=== PATIENT | male | born 1940 | race Caucasian/White ===

== ENCOUNTER → 2024-03-09 08:01 | Outpatient (REF) | payer OTHER, SELFPAY | LOC: DHCBC/DCA 08:01 | PROVIDERS: ATTENDING PHYSICIAN Internal Medicine Cardiovascular Disease; FAMILY PHYSICIAN Family Medicine | DX: I25.799 Atherosclerosis of other coronary artery bypass graft(s) with unspecified angina pectoris (principal) | CPT/HCPCS: 78452; 93017; A9500; J2785 ==

== ENCOUNTER → 2024-07-05 13:57 | Outpatient (REF) | payer OTHER, SELFPAY | LOC: HWRCS 13:57 | PROVIDERS: ATTENDING PHYSICIAN Internal Medicine Cardiovascular Disease; FAMILY PHYSICIAN Family Medicine | DX: I10 Essential (primary) hypertension (principal); I49.3 Ventricular premature depolarization; I35.0 Nonrheumatic aortic (valve) stenosis | CPT/HCPCS: 93306 ==

== ENCOUNTER → 2024-12-18 13:01 | Outpatient (REF) | payer OTHER, SELFPAY | LOC: HWRAD 13:01 | PROVIDERS: ATTENDING PHYSICIAN Internal Medicine Cardiovascular Disease; FAMILY PHYSICIAN Family Medicine | DX: I25.10 Atherosclerotic heart disease of native coronary artery without angina pectoris (principal); Z95.1 Presence of aortocoronary bypass graft | CPT/HCPCS: 76775 ==

== ENCOUNTER → 2025-06-18 08:27 | Outpatient (REF) | payer OTHER, SELFPAY | LOC: HWRAD 08:27 | PROVIDERS: ATTENDING PHYSICIAN Internal Medicine Cardiovascular Disease; FAMILY PHYSICIAN Family Medicine | DX: I49.3 Ventricular premature depolarization (principal); I71.40 Abdominal aortic aneurysm, without rupture, unspecified | CPT/HCPCS: 76770 ==

== ENCOUNTER → 2025-06-22 12:57 | Outpatient (REF) | payer OTHER, SELFPAY | LOC: HWRCS 12:57 | PROVIDERS: ATTENDING PHYSICIAN Internal Medicine Cardiovascular Disease; FAMILY PHYSICIAN Family Medicine | DX: I25.10 Atherosclerotic heart disease of native coronary artery without angina pectoris (principal) | CPT/HCPCS: 93306 ==

== ENCOUNTER → 2025-07-12 07:44 | Outpatient (REF) | payer OTHER, SELFPAY | LOC: HWRCS 07:44 | PROVIDERS: ATTENDING PHYSICIAN Internal Medicine Cardiovascular Disease; FAMILY PHYSICIAN Family Medicine | DX: I49.3 Ventricular premature depolarization (principal); I25.10 Atherosclerotic heart disease of native coronary artery without angina pectoris | CPT/HCPCS: 78452; 93017; A9500; J2785 ==

== ENCOUNTER 2025-09-19 06:11 | Day surgery (SDC) | payer OTHER, SELFPAY ==
[2025-08-31 13:16] VITALS: BMI 26.2
[2025-08-31 13:37] LABS: Hematocrit 46.6 % (39.0-52.0); Hemoglobin 15.9 g/dL (13.0-18.0); Mean Corp Hgb Conc. 34.1 g/dL (33.0-37.0); Mean Corpuscular Volume 91.9 fL (80.0-94.0); Nucleated Red Blood Cells % 0 % (-); Platelet Count 132 10^3/uL (130-400); Red Cell Dist. Width 13.9 % (11.5-14.5)
[2025-08-31 13:40] LABS: INR 1.36; PT 17.1 Sec (11.4-14.6)
[2025-08-31 13:47] LABS: ALT (SGPT) 23 U/L (0-50); AST (SGOT) 23 U/L (17-59); Albumin 4.7 g/dl (3.5-5.0); Alkaline Phosphatase 62 U/L (38-126); Blood Urea Nitrogen 15 mg/dl (9-20); Calcium 9.4 mg/dl (8.4-10.2); Carbon Dioxide 26 mmol/L (22-30); Chloride 105 mmol/L (98-107); Estimated Creatinine Clearance 74 ml/min; Glucose 164 mg/dl (70-99); Magnesium 2.0 mg/dl (1.6-2.3); Potassium 4.1 mmol/L (3.5-5.1); Sodium 140 mmol/L (135-145); Total Protein 7.3 g/dl (6.3-8.2); eGFR > 60.00
[2025-09-19] VITALS (23 sets, daily range): BP systolic 102–146; BP diastolic 58–92; BMI 25.8
[2025-09-19 07:15] LABS: Glucose - Point of Care 123 mg/dl (70-99)
--- NOTE | 2025-09-19 07:42 | ITS.CL.ABL ---
[facility] - Ablation
Ablation
Procedure Report:
Primary Lead Systems Engineer: Dr Saul Roach
Procedure Date: 09/19/2025
Patient History:
Patient is a pleasant 85-year-old male with a past medical history significant for hypertension, CAD with prior CABG, hypertension, hyperlipidemia, mild aortic stenosis, abdominal aortic aneurysm, history of arthritis laminectomy, high PVC burden,
symptomatic atrial fibrillation and atrial flutter with tachybradycardia syndrome. Medical options limited due to bradycardia and tachybradycardia associated with conversion pauses. PVC morphology appears to be anterolateral papillary muscle by
surface EKG.
See H&P for complete details.
Indication:
Symptomatic paroxysmal atrial fibrillation
Symptomatic persistent atrial flutter
High PVC burden (greater than 27%)
Arrhythmia Specific History:
Prior Medical Therapies for Rate and Rhythm Control:
X Beta-zeus
[ ] Calcium channel-zeus
[ ] Amiodarone
[ ] Dronederone
[ ] Sotalol
[ ] Flecainide
[ ] Dofetilide
X Options limited by bradycardia
[ ] Options limited by comorbid renal disease
Prior Procedural Therapies for AF/AFL:
[ ] Cardioversion
[ ] Pulmonary Vein Isolation
[ ] Posterior Wall Isolation
[ ] Additional lines (Specify)
[ ] Surgical Gabriel-MAZE or PVI (Specify)
Procedure Performed:
X AF ablation procedure (61036) -- includes LA/CS pacing, trans-septal, 3D mapping, + ICE
[ ] +IV drug (08774)
X +Other Arrhythmia (45228) x2 -- CTI RFA for typical atrial flutter; PVC RFA for symptomatic high pvc burden
X +Other AF Line/ablation (55341) x2 -- floor line, roof line, posterior wall isolation
Risks and expected recovery has been explained in detail. Alternative options have been explored, and in a shared-decision making fashion we have decided that this was the most appropriate procedure.
Method
NPO status confirmed. Grounding pad applied. Defibrillator pads applied. Continuous surface ECG, pulse oximetry, and blood pressure were monitored. Procedure was performed under general anesthesia, with anesthesia services.
Both groins were clipped, prepped with Chloraprep, and draped in sterile fashion. Time out was called. Local anesthesia administered with bupivacaine. The right femoral vein was accessed for catheter placement, using ultrasound guidance (images
saved to record), micro-puncture needle/wire, and modified seldinger technique. 3 sheaths were placed. The following catheters were used:
[ ] Tacticath SE (D/F Curve) ablation catheter
X Viewflex 9Fr ICE catheter
X Inquiry decapolar 6Fr diagnostic catheter
[ ] CRD Hex 6Fr
X Agilis 11.5 Fr Steerable Sheath
X Sphere-9 Ablation catheter
[ ] Advisor HD Grid Mapping Catheter, SE
[ ] Acuson AcuNav 8 Fr ICE catheter
[ ] Other: [ ]
A multipolar catheter were advanced to the coronary sinus. Intracardiac ultrasound (ICE) was carefully advanced into the right atrium to guide sheath placement over a J-wire, catheter placement, guide trans-septal puncture, identify potential
complications, identify anatomic structures and ensure proper contact between ablation catheter and tissue.
Heparin was given to achieve and maintain a target ACT of 300-400 seconds throughout the procedure.
The Sphere-9 mapping/ablation catheter (through long steerable sheath was used to map, record, pace, and ablate.) Three-dimensional electroanatomic mapping was utilized with careful attention to anatomic landmarks, including the coronary sinus,
IVC-RA and SVC-RA junction, tricuspid valve annulus, and region of the His bundle electrogram. Tachycardia was characterized by activation patterns in the CS catheters. Patient's atrial flutter appeared to be right atrial with a tachycardia cycle
length of 230 ms. Entrainment maneuvers established cavotricuspid isthmus-dependence. An ablation line was created from the tricuspid annulus to the IVC in the 6:00 position (INDONESIAN clock/caudal EAM projection). A combination of RF and PF was used
with careful monitoring of impedance, AV conduction, power, and temperature. The patient's atrial flutter terminated during ablation. Ablation continued until a line was complete from the tricuspid valve annulus to the IVC-RA junction during CS
pacing. Clockwise and counterclockwise trans-isthmus times were determined, and RA activation patterns confirmed bidirectional block. Patient remained in sinus rhythm for the remainder of the procedure.
Next, we turned our attention to the AF Ablation.
Trans-septal access was performed under ICE guidance. The trans-septal puncture was performed with a SafeSept wire through a Brockenbrough needle assembly through the steerable sheath. The wire was visualized as it entered the LSPV and system
advanced under ICE guidance and fluoroscopy into the LA. The Brockenbrough needle assembly, SafeSept wire and sheath dilator were removed under negative pressure. LA pressure was measured and recorded.
ICE and 3D mapping was performed to identify relevant cardiac structures. A careful 3D map was created to assess for regions of low-voltage and abnormal electrogram signals using Sphere-9 catheter. Additional mapping was performed as outlined below.
Prior to ablation, glycopyrrolate was provided. Sphere 9 catheter was advanced into the left atrium. Electroanatomic mapping was performed using the Sphere 9 catheter. Pulmonary vein isolation was performed using pulsed field ablation in a
circumferential manner. Contact was visualized via EAM, ICE, fluoroscopy, and EGM signals.
After accomplishing pulmonary venous isolation, mapping identified additional areas likely to be extra PV contributors to atrial fibrillation. These areas demonstrated patchy low voltage as well as complex fractionated electrograms. These areas can
be sites for the formation of rotors which can drive and maintain atrial fibrillation. These areas are known to be significant contributors to initiation and perpetuation of atrial fibrillation.
Additional energy applications/additional ablation sets targeted extra PV contributors to atrial fibrillation.
Targets for additional PFA ablation included: LA posterior wall targeted with pulsed electric field energy isolating the posterior wall of the left atrium. Posterior wall isolation was performed by aforementioned methods using Sphere-9 catheter.
After ablation of the posterior wall, targets remained including:
- Inferior LA floor
- Anterior LA roof
- The ridge of tissue between the left atrial appendage and the left sided pulmonary veins (Ligament of Irineo)
These areas were ablated using pulsed electric field energy eliminating the extra PV contributors to atrial fibrillation.
Following completion of ablation lesions, a post-ablation voltage/activation map was performed in sinus rhythm. Entrance and exit block were confirmed for each vein and the posterior wall.
Next, we turned our attention to the PVC ablation.
Under fluoroscopy and intracardiac ultrasound guidance, the Sphere-9 catheter was advanced into the left ventricle. Catheter tip was placed near the area of interest at the anterolateral part muscle. Additionally, by intracardiac ultrasound, there
was a small area of focal calcification on the anterolateral PAP muscle between the 2 heads. Electroanatomic mapping demonstrated a QS pattern by unipolar EGM. Fractionation on EGM noted -30-40 ms pre-QRS. Pace mapping at this location
demonstrated a 12/12 pace map. Radiofrequency ablation was performed in this area with careful monitoring of impedance, power, temperature. Following ablation and consolidation within this region, no PVCs were noted. Following a waiting period,
catheter was removed from the left ventricle. Following ablation, no clinical PVCs were noted. Patient had very rare nonclinical PVC from separate location. Due to infrequency and lack of prior clinical evidence, these were not mapped or targeted.
Catheter was removed from the left atrium and LA pressure was recorded. Sheath then removed from the left atrium and catheter reintroduced into the right atrium. Reassessment of the CTI ablation line demonstrated persistent bidirectional block.
Electrophysiology study was performed and no induction of arrhythmias were noted. Post-ablation intracardiac echo evaluation was consistent with pre-ablation with no changes and no pericardial effusion and there is no left atrial thrombus or left
ventricle thrombus seen. Hemostasis was obtained with figure of 8 stitch for each groin and with manual pressure. Protamine was used for reversal.
Estimated Blood Loss
5 mL
Complications
None
Fluoroscopy: 4.5 minutes; 3.34 mGy; DAP 14.02
LA Pressure: Pre 7 mmHg, post 9 mmHg
Baseline Intervals:
Rhythm: Atrial flutter
TCL: 230 ms
QRS: 101 ms
Post-Procedure Intervals:
SC: 278 ms
QRS: 93 ms
QT: 410 ms
QTc: 463 ms
A-A: 815 ms
R-R: 815 ms
AVWB: 590 ms
AVNERP: 700/590 ms
AERP: 700/220 ms
Recommendations
- Bedrest with straight-leg precautions as ordered
- Admit with anticipate discharge home tomorrow after overnight observation
- Resume home medications as indicated
- Ok to resume anticoagulation tonight if patient and groin sites stable
- PPI daily for 30 days
- Plan for follow-up in office as scheduled
Venkat Boyd, , FACC, FHRS
Clinical Cardiac Brancher
cc: Dr Saul Roach; Dr Abilio Szymanski
[2025-09-19 08:48] LABS: ACT-LR - POC 376 Seconds (116-155)
[2025-09-19 09:19] LABS: ACT-LR - POC 371 Seconds (116-155)
[2025-09-19 09:38] LABS: ACT-LR - POC 361 Seconds (116-155)
[2025-09-19 09:53] LABS: ACT-LR - POC 321 Seconds (116-155)
[2025-09-19 10:09] LABS: ACT-LR - POC 387 Seconds (116-155)
[2025-09-19 10:25] LABS: ACT-LR - POC 335 Seconds (116-155)
[2025-09-19 10:45] LABS: ACT-LR - POC 170 Seconds (116-155)
[2025-09-19 10:53] LABS: ACT-LR - POC > 397 Seconds (116-155)
[2025-09-19 11:54] LABS: Glucose - Point of Care 166 mg/dl (70-99)
--- NOTE | 2025-09-19 14:40 | PTCARENOTE ---
Rec'd report from Bhupendra in the cardiac cath lab radiology technologist; Rec'd pt AAOx3, w/no c/o CP or SOB. Pt [place] bilat w/bilat ANDERSON's. Pt w/VSS w/HR in the 80's & BP 128/86 on arrival to the unit. Pt w/R groin puncture site w/figure of [address] & dressing C/D/I.
No signs or symptoms of bleeding or hematoma. Pt advised of bedrest restrictions & verbalized his understanding. Pt w/call su within reach & family at bedside. Plan of care ongoing.
--- NOTE | 2025-09-19 15:28 | CM ---
Reviewed chart. Met with and Mrs. Souza and their daughters to review discharge plans. He states prior to admission he resides with his spouse in a two story home with one step to enter. He states he has a first floor set-up, his main suite and
full bathroom are on the first floor. He states prior to admission he was independent with ambulation in the home and uses a single point cane in the home. He states he has a single point cane and rolling walker in the home. He states he has a
prescription plan. Medical work-up in progress. The discharge plan is to return home with his spouse when medically stable.
[2025-09-19] MEDS: LIPITOR 20 MG PO (21:07)
[2025-09-19] MEDS: NEURONTIN 800 MG PO (21:08)
[2025-09-19] MEDS: XALATAN OPHTHALMIC SOLUTION 1 DROP OPHTH (22:02)
[2025-09-19] MEDS: ELIQUIS 5 MG PO (22:02)
--- NOTE | 2025-09-20 01:49 | PTCARENOTE ---
Assumed care of patient at change of shift. Pt AAOx3 and [place] bilaterally. Ambulates w/ standby assist, gait unsteady. Denies any dizziness. Right groin site intact w/ positive DP pulse. No hematoma present at this time. BP stable. Tele monitor shows
? 2:1 block at times and SB w/ 1st AV block and occasional PVCs. Praneeth JEFFERSON aware of EKG. HR in the 40-70's at rest. Ambulated patient to the bathroom, and HR went into the 90's. Denies any chest discomfort. Aware of POC, call su in
reach.
[2025-09-20 04:07] VITALS: BP 124/71
[2025-09-20 04:53] LABS: Blood Urea Nitrogen 14 mg/dl (9-20); Calcium 8.9 mg/dl (8.4-10.2); Carbon Dioxide 23 mmol/L (22-30); Chloride 107 mmol/L (98-107); Estimated Creatinine Clearance 84 ml/min; Glucose 145 mg/dl (70-99); Magnesium 1.8 mg/dl (1.6-2.3); Potassium 4.2 mmol/L (3.5-5.1); Sodium 138 mmol/L (135-145); eGFR > 60.00
[2025-09-20 04:56] LABS: Hematocrit 41.5 % (39.0-52.0); Hemoglobin 13.7 g/dL (13.0-18.0); Mean Corp Hgb Conc. 33.0 g/dL (33.0-37.0); Mean Corpuscular Volume 94.1 fL (80.0-94.0); Platelet Count 135 10^3/uL (130-400); Red Cell Dist. Width 14.3 % (11.5-14.5)
[2025-09-20] MEDS: ELIQUIS 5 MG PO (07:58)
[2025-09-20] MEDS: NEURONTIN 800 MG PO (07:58)
[2025-09-20 08:03] VITALS: BP 130/75
--- NOTE | 2025-09-20 09:38 | W.PN.CARDCBS ---
Today's Communication / Plan
-
post PVI/PW, CTI flutter and PVC ablation
stable for d/c home
Impression / Plan
-
Primary care physician: Fabio Stoner,
Primary Employee Health Rn: Dr Saul Roach
85-year-old male with a past medical history significant for hypertension, CAD with prior CABG, hypertension, hyperlipidemia, mild aortic stenosis, abdominal aortic aneurysm, history of arthritis laminectomy, high PVC burden, symptomatic atrial
fibrillation and atrial flutter with tachybradycardia syndrome. Medical options limited due to bradycardia and tachybradycardia associated with conversion pauses. PVC morphology appears to be anterolateral papillary muscle by surface EKG.
Impression:
Symptomatic paroxysmal atrial fibrillation
Symptomatic persistent atrial flutter
High PVC burden (greater than 27%)
tachybradycardia syndrome with conversion pauses on holter monitor 06/2025
1st and 2nd degree heart block (Wenckebach)
post PVI/PW, CTI flutter and PVC ablation 09/19/25
CAD/CABGx5
HTN
HLD
Infrarenal AAA
Mild
DM2 with neuropathy
SANJANA
Spinal stenosis
Osteoarthritis
Plan:
post ablation feels good
groin stable
tele SR 1deg AVB, LAFB with a decrease in PVC's noted
He did have occasional Wenckebach and very brief Afib with some conversion pauses,which is not new and he is asymptomatic
OAC Eliquis
continue very low dose metoprolol 12.5mg hs
Activity restrictions reviewed
f/u Dr. Roach in 3 mo
home today
Progress Note - Employee Health Rn
Subjective
Date of Service: September 20, 2025
denies cp, sob, LH/Dizziness
Objective
Labs:
09/20/25 04:13
09/20/25 04:13
Labs
Hgb 13.7 g/dL (13.0-18.0) 09/20/25 04:13
Hct 41.5 % (39.0-52.0) 09/20/25 04:13
Plt Count 135 10^3/uL (130-400) 09/20/25 04:13
PT 17.1 Sec (11.4-14.6) H 08/31/25 13:09
INR 1.36 08/31/25 13:09
Sodium 138 mmol/L (135-145) 09/20/25 04:13
Potassium 4.2 mmol/L (3.5-5.1) 09/20/25 04:13
BUN 14 mg/dl (9-20) 09/20/25 04:13
Creatinine 0.7 mg/dL (0.7-1.3) 09/20/25 04:13
Glucose 145 mg/dl (70-99) H 09/20/25 04:13
Vital Signs and I&O:
Vital Signs
Temp Pulse Resp BP Pulse Ox
97.3 F 63 20 130/75 95
09/20/25 08:03 09/20/25 09:00 09/20/25 08:03 09/20/25 08:03 09/20/25 08:03
Vital Signs
Temp Pulse Resp BP Pulse Ox
97.3 F 63 20 130/75 95
09/20/25 08:03 09/20/25 09:00 09/20/25 08:03 09/20/25 08:03 09/20/25 08:03
Intake & Output
09/18/25 09/19/25 09/20/25 09/21/25
06:59 06:59 06:59 06:59
Intake Total 4320 / 4320
Output Total 600 / 600
Balance 3720 / 3720
Physical Exam
Physical Exam
NAD< AOx3
S1, S2, RRR, II/ RON
CTAB, non labored, no wheeze
SNTND Bsx4
R fem site c/d/i no HT, soft
--- NOTE | 2025-09-20 10:47 | CM ---
Reviewed chart. Met with to review discharge plans. He states he is feeling well and maybe able to go home soon. Prior to admission he resides with his spouse in a two story home with one step to enter. He has a first floor set-up, his
main suite and full bathroom are on the first floor. Prior to admission he was independent with ambulation in the home and uses a single point cane in the community. . He has a single point cane and rolling walker in the home. He has a prescription
plan. Medical work-up in progress. The discharge plan is to return home with his spouse when medically stable.
[2025-09-20 11:11] VITALS: BP 139/81
--- NOTE | 2025-09-20 11:27 | PTCARENOTE ---
Pt received this am oob ad trudi, gait steady. Denies any pain or sob. Right groin site WNL, dressing dry and intact. Room air sat 95%. Monitor showing wenkebach, rate in the 50's to 60's. Rhythm reviewed with Chela Preston CNP. Pt discharged to home
--- NOTE | 2025-09-20 11:35 | PTCARENOTE ---
Pt received this am oob ad trudi, gait steady. Room air sat 95%. Denies any pain, sob or lightheadedness. Right groin dressing dry and intact and site WNL. Monitor showing wenkebach, rate in the 50's to 60's. Rhythm reviewed with Chela Preston CNP. Pt
discharged to home with his . Discharge instructions given and reviewed with good understanding and all questions answered.
--- NOTE | 2025-09-20 15:13 | W.DS.TRANS ---
DC Summary - [employer] [employer]
-
Discharge Instructions:
Discharge Diagnosis/Procedures Atrial fibrillation, Atrial flutter and PVC's
post multiple ablations
Diet Low Cholesterol,Low Sodium
Driving Restrictions No driving for 24 hours
Specialty Instructions Weigh Daily
Instructions:
Stand-Alone Forms: DC Instructions- Cath/EP Lab
Changes to Home Medications: No
Discharge Medications:
DC Medications w/original date entered in [facility]
acetaminophen 650 mg tablet,extended release 650 mg PO Q12H 08/29/25
apixaban 5 mg tablet (Eliquis) 5 mg PO BID 08/29/25
atorvastatin 20 mg tablet 20 mg PO HS 08/29/25
cyanocobalamin (vitamin B-12) 5,000 mcg sublingual tablet (Vitamin B-12) 5,000 mcg sublingual DAILY 08/29/25
dapagliflozin propanediol 5 mg tablet (Farxiga) 5 mg PO DAILY 08/29/25
gabapentin 800 mg tablet 800 mg PO BID 08/29/25
metoprolol succinate 25 mg tablet,extended release 24 hr 12.5 mg PO HS 08/29/25
multivitamin 1 tab PO DAILY 08/29/25
omega 2-rbc-dwa-fish oil 1,000 mg (120 mg-180 mg) capsule (Fish Oil) 1 cap PO BID 08/29/25
latanoprost 0.005 % eye drops 1 drp ophthalmic (eye) QPM 09/19/25
Home Medication Changes
Pending Results: No
== END 2025-09-20 11:33 | disposition home or self-care (01) ==
LOC: CATH 06:11
PROVIDERS: Nurse Practitioner Adult Health; ATTENDING PHYSICIAN Internal Medicine Cardiovascular Disease; FAMILY PHYSICIAN Family Medicine; OTHER PHYSICIAN Internal Medicine Cardiovascular Disease
DX: I48.0 Paroxysmal atrial fibrillation (principal); I48.92 Unspecified atrial flutter; I49.3 Ventricular premature depolarization; I47.20 Ventricular tachycardia, unspecified; I44.1 Atrioventricular block, second degree; I10 Essential (primary) hypertension; E78.5 Hyperlipidemia, unspecified; Z95.1 Presence of aortocoronary bypass graft; I25.10 Atherosclerotic heart disease of native coronary artery without angina pectoris; I71.43 Infrarenal abdominal aortic aneurysm, without rupture; Z79.84 Long term (current) use of oral hypoglycemic drugs; E11.40 Type 2 diabetes mellitus with diabetic neuropathy, unspecified; G47.33 Obstructive sleep apnea (adult) (pediatric); M19.90 Unspecified osteoarthritis, unspecified site; H35.30 Unspecified macular degeneration; Z79.01 Long term (current) use of anticoagulants; Z79.899 Other long term (current) drug therapy; Z87.891 Personal history of nicotine dependence; Z88.0 Allergy status to penicillin; I49.5 Sick sinus syndrome; I44.4 Left anterior fascicular block; I35.0 Nonrheumatic aortic (valve) stenosis; Z88.8 Allergy status to other drugs, medicaments and biological substances; M48.00 Spinal stenosis, site unspecified; J98.4 Other disorders of lung
CPT/HCPCS: C1733; C1894; C1766; C1892; 36415; 75572; 80048; 80053; 82962; 83735; 85025; 85027; 85610; 86850; 86900; 86901; 93005; 93655; 93656; 93657; Q9967